=== PATIENT | female | born 1985 | race African-American/Black ===

== ENCOUNTER 2019-03-17 14:29 | Emergency (ER) | payer BC ==
[~2019-03-17] VITALS: Ht 172.7 cm; Wt 72.6 kg
[2019-03-17] MEDS ORDERED: WELLBUTRIN SR150 MG PO (14:47)
[2019-03-17] MEDS ORDERED: ATIVAN1 M1 PO (14:47)
[2019-03-17] MEDS ORDERED: ADDERALL 20 MG20 MG PO (14:48)
[2019-03-17 15:09] LABS: INFLUENZA A ANTIGEN Negative (Negative); INFLUENZA B ANTIGEN Negative (Negative)
[2019-03-17] MEDS ORDERED: ZOFRAN ODT4 MG SUBLING (15:26)
[2019-03-17 15:34] VITALS: BP 128/93
== END 2019-03-17 15:34 | disposition home or self-care (01) ==
LOC: M.ERS 14:29
PROVIDERS: Family Medicine
DX: B34.9 Viral infection, unspecified (principal); Z90.49 Acquired absence of other specified parts of digestive tract

== ENCOUNTER → 2019-05-30 | Outpatient (CLI) | payer BC ==
[~2019-05-30] MED LIST: ADDERALL 20 MG20 MG PO; ATIVAN1 M1 PO; WELLBUTRIN SR150 MG PO; ZOFRAN ODT4 MG SUBLING
== END ==
LOC: M.ULTRA 10:30
DX: K76.0 Fatty (change of) liver, not elsewhere classified (principal); R16.0 Hepatomegaly, not elsewhere classified

== ENCOUNTER 2019-06-21 14:31 | Inpatient (IN) | payer BC ==
[~2019-06-21] VITALS: Ht 175.3 cm; Wt 93.0 kg
--- NOTE | ~2019-06-21 | CON ---
[address] [address] CONSULTATION Name: PATRIZIA SHELDON Room: [address] IN .R.#: [id number] Admission: 06/21/19 Attend Phys: Zhang Carroll MD Discharge: Date of : 89 Report #: [id number] THIS REPORT FOR: //name// cc: CRISTINE Renae family physician/PCP CRISTINE Renae family physician/PCP ~ THIS REPORT FOR: //name// CC: Zhang COLUNGA physician/PCP DATE OF SERVICE: 06/22/2019 HISTORY OF PRESENT ILLNESS: A 33-year-old female with past medical history significant for anxiety, depression, ADHD, who is presenting for evaluation of intractable abdominal pain. The patient reports the pain began 2 days back, located in the epigastric region and radiates to the back associated with nausea, vomiting. The patient reports the pain is worse with eating and is relieved by pain medication. The patient denies similar episodes in the past. Denies episodes of jaundice, hematemesis, hematochezia or other alarm symptoms. PAST MEDICAL HISTORY: Anxiety, depression and ADHD. PAST SURGICAL HISTORY: Appendectomy in 2019. SOCIAL HISTORY: The patient admits to binge drinking, can take about 3-4 glasses of wine a few times a week. Denies smoking or recreational drug use. FAMILY HISTORY: No family history of pancreatic malignancy, colon or gastric cancers. REVIEW OF SYSTEMS: A comprehensive 10-point review of systems is negative except for what was mentioned in the HPI. PHYSICAL EXAMINATION: VITAL SIGNS: Temperature 36.6, pulse rate 81, blood pressure 133/97, respiratory rate 14. GENERAL: The patient is alert, awake, oriented x 3. HEENT: Pupils are equal, round, reactive to light and accommodation. Mucous membranes are moist. There is no congestion. LUNGS: Clear to auscultation bilaterally. CARDIOVASCULAR: Rate and rhythm regular, S1, S2 present. ABDOMEN: Soft. There is no distention, guarding or rigidity. EXTREMITIES: Warm, well perfused. There is no edema. SKIN: Warm and dry. LABORATORY DATA: Hemoglobin 12.1, hematocrit 36.1, platelet count 269, [place] [address] CONSULTATION Name: PATRIZIA SHELDONCIA Room: [address] IN [facility]#: [id number] Admission: 06/21/19 Attend Phys: Zhang Carroll MD Discharge: Date of : 89 Report #: [id number] count 6.3. Sodium 136, potassium 4.1, chloride 102, bicarbonate 24, BUN 6, creatinine 0.7, total bilirubin 0.2, AST 96, ALT 129, alkaline phosphatase 54, lipase 6800. IMAGING: Abdomen and pelvis CT demonstrates moderate retroperitoneal fluid surrounding the pancreatic head and body, likely indicating pancreatitis. ASSESSMENT AND PLAN: Pleasant 33-year-old female with likely alcoholic pancreatitis, presents with a first episode. Alcohol cessation advised to continue IV fluids and pain medications as needed. Advance diet as tolerated. Since this is the patient's first episode of pancreatitis, no further evaluation is needed. Thank you for this consultation. By: [id number] Davey MD /nt
[2019-06-21 14:41] VITALS: BP 130/74
[2019-06-21] MEDS ORDERED: AUGMENTIN 875-1 EACH PO (14:45)
[2019-06-21 15:09] LABS: ABSOLUTE BASOPHILS 0.1 thou/uL (0.0-0.2); ABSOLUTE LYMPHOCYTES 1.3 thou/uL (0.8-5.3); ABSOLUTE MONOCYTES 0.4 thou/uL (0.0-1.2); ABSOLUTE NEUTROPHILS 3.5 thou/uL (1.6-8.1); EOSINOPHILS 0.7 %; HEMATOCRIT 39.6 % (37.0-47.0); HEMOGLOBIN 13.1 gm/dL (12.0-15.0); LYMPHOCYTES 24.1 %; MCH 29.5 pg (26.0-34.0); MCHC 32.9 g/dL (28.0-37.0); MCV 89.6 fL (80.0-100.0); MONOCYTES 7.2 %; MPV 7.7 fl. (7.2-11.1); NUCLEATED RBCS 0 /100WBC; PLATELET COUNT* 309 thou/uL (150-400); RBC 4.42 mil/uL (4.20-5.00); RDW-CV 14.6 % (10.5-14.5); WBC 5.2 thou/uL (4.0-11.0)
[2019-06-21 15:14] LABS: CALCIUM 8.4 mg/dL (8.5-10.1); CREATININE 0.9 mg/dL (0.6-1.3); POTASSIUM 3.8 mmol/L (3.5-5.1)
[2019-06-21 15:15] LABS: URINE CLARITY CLOUDY; URINE COLOR ORANGE
[2019-06-21 15:18] LABS: ALBUMIN 3.8 g/dL (3.4-5.0); TOTAL BILIRUBIN 0.5 mg/dL (<0.1-1.0); TOTAL PROTEIN 7.4 g/dL (6.4-8.2)
[2019-06-21 15:20] LABS: SQUAMOUS 0-3 Few /LPF (0-3)
[2019-06-21 15:21] LABS: BACTERIA-REFLEX >30 Many /HPF (None Seen); CASTS None Seen /LPF (None Seen); CRYSTALS None Seen /LPF (None Seen); URINE RBC >20 Many /HPF (0-2); URINE WBC-REFLEX >25 Many /HPF (0-5)
[2019-06-21 17:44] VITALS: BP 141/87
[2019-06-21 18:00] VITALS: BP 134/79
--- NOTE | 2019-06-21 19:52 | NUR ---
RECEIVED REPORT FROM ER. PT ARRIVED TO TELE FLOOR AROUND 1800. PT SETTELED IN ROOM ,ORIENTED TO ROOM BED AND CALL LIGHT. VITALS CAHRTED. PT REPORTED ABDOMINAL PAIN AND RECEIVED IV PAIN MEDICATION WITH LIMITED RELIEF. SEPSIS SCREEN COMPLETED AND SHOWED POSITIVE RESULT - DR WEAVER NOTIFIED AND ORDERS PUT IN THE COMPUTER BY HIM. PT NPO AT THIS TIME FOR LIMITED US ABDOMEN, STAT. PT CURRENTLY RESTING IN BED BUT RESTLESS. CALL LIGHT IS WITHIN REACH. LOW FALL RISK PRECAUTIONS IN PLACE. HOURLY ROUNDING PERFORMED. PT HANDED OFF TO AMBROCIO PURI.
[2019-06-21 21:00] VITALS: BP 127/79
[2019-06-22 00:02] VITALS: BP 132/100
[2019-06-22 04:34] LABS: ABSOLUTE LYMPHOCYTES 0.7 thou/uL (0.8-5.3); ABSOLUTE MONOCYTES 0.5 thou/uL (0.0-1.2); ABSOLUTE NEUTROPHILS 5.1 thou/uL (1.6-8.1); BASOPHILS 0.3 %; EOSINOPHILS 0.1 %; HEMATOCRIT 36.1 % (37.0-47.0); HEMOGLOBIN 12.1 gm/dL (12.0-15.0); LYMPHOCYTES 11.2 %; MCH 30.3 pg (26.0-34.0); MCHC 33.4 g/dL (28.0-37.0); MCV 90.5 fL (80.0-100.0); MONOCYTES 7.8 %; MPV 8.1 fl. (7.2-11.1); NUCLEATED RBCS 0 /100WBC; PLATELET COUNT* 269 thou/uL (150-400); POLYS 80.6 %; RBC 3.99 mil/uL (4.20-5.00); RDW-CV 14.5 % (10.5-14.5); WBC 6.3 thou/uL (4.0-11.0)
[2019-06-22 04:57] LABS: CALCIUM 7.7 mg/dL (8.5-10.1); CREATININE 0.7 mg/dL (0.6-1.3); POTASSIUM 4.1 mmol/L (3.5-5.1)
--- NOTE | 2019-06-22 05:52 | NUR ---
ASSESSMENTS COMPLETED CHARTED, MEDICATIONS ADMINISTERED PER MAR. HOURLY ROUNDING FOR SAFETY. CALL LIGHT WITHIN REACH. CONT PLAN OF CARE.
[2019-06-22 08:00] VITALS: BP 133/97
[2019-06-22 09:55] LABS: ALBUMIN 3.2 g/dL (3.4-5.0); DIRECT BILIRUBIN 0.2 mg/dL (<0.1-0.3); TOTAL BILIRUBIN 0.7 mg/dL (<0.1-1.0); TOTAL PROTEIN 6.4 g/dL (6.4-8.2)
--- NOTE | 2019-06-22 12:57 | EKG ---
[place] [address] ELECTROCARDIOGRAM REPORT Name: PATRIZIA SHELDON Room: [address] ADM IN M.R.#: [id number] Admission: 06/21/19 Attend Phys: Zhang Carroll, Discharge: Date of : 89 Date of Service: 06/21/19 1500 Report #: [id number] THIS REPORT FOR: //name// [facility] ED Test Date: 2019-06-21 Test Time: 15:00:34 Pat Name: PATRIZIA SHELDON Department: Room: [facility] Gender: F Adult School Teacher: : 1985 Requested By: Dior Swann Order Number: [id number] MD: Marko Carcamo Measurements Intervals [place] Rate: 81 P: 55 RI: 163 QRS: 54 QRSD: 94 T: 47 QT: 408 QTc: 474 Interpretive Statements Sinus rhythm Baseline wander in lead(s) I,II,aVR,aVL No previous ECG available for comparison Electronically Signed On 06-22-2019 12:56:25 CDT by Marko Carcamo [email or web address] <ELECTRONICALLY SIGNED> By: Marko Carcamo MD, FACC 06/22/19 1256 1500 1500 Marko Carcamo MD, FAC /EPI
[2019-06-22 16:36] VITALS: BP 133/97
--- NOTE | 2019-06-22 18:38 | NUR ---
CONNIE RESTING IN BED. PAIN MANAGEMENT WITH IV FENTAYL [id number]. IV FLUIDS. HOURLY ROUNDINGCOMPLETD FOR PATIENT SAFETY.
[2019-06-22 20:30] VITALS: BP 135/90
[2019-06-23] VITALS: BP 133/92; BP 144/80
--- NOTE | 2019-06-23 03:47 | NUR ---
ASSUMED CARE FROM DAY SHIFT PT UP WASHING HAIR C/O PAIN REQUESTING FOOD , ICE CHIPS AND SIPS OF WATER RECOMMENED DUE TO HER NPO STATUS. PAIN MEDICATION REQUESTED EVERY TWO HOURS. PT REQUESTING FOOD .DENIES NAUSEA AT THIS TIME. WILL CONTINUE WITH CURRENT PLAN OF CARE.
[2019-06-23 05:11] LABS: ABSOLUTE MONOCYTES 0.8 thou/uL (0.0-1.2); ABSOLUTE NEUTROPHILS 7.4 thou/uL (1.6-8.1); BASOPHILS 0.2 %; EOSINOPHILS 0.4 %; HEMATOCRIT 37.2 % (37.0-47.0); HEMOGLOBIN 12.3 gm/dL (12.0-15.0); LYMPHOCYTES 10.3 %; MCH 29.8 pg (26.0-34.0); MCV 90.2 fL (80.0-100.0); MONOCYTES 8.4 %; MPV 8.9 fl. (7.2-11.1); NUCLEATED RBCS 0 /100WBC; PLATELET COUNT* 226 thou/uL (150-400); POLYS 80.7 %; RBC 4.12 mil/uL (4.20-5.00); RDW-CV 14.6 % (10.5-14.5); WBC 9.2 thou/uL (4.0-11.0)
[2019-06-23 05:26] LABS: ALBUMIN 2.6 g/dL (3.4-5.0); CALCIUM 7.3 mg/dL (8.5-10.1); CREATININE 0.7 mg/dL (0.6-1.3); POTASSIUM 3.5 mmol/L (3.5-5.1); TOTAL BILIRUBIN 0.5 mg/dL (<0.1-1.0); TOTAL PROTEIN 5.5 g/dL (6.4-8.2)
[2019-06-23 07:40] VITALS: BP 130/82
[2019-06-23 10:36] LABS: CHOLESTEROL 102 mg/dL (<200); HDL CHOLESTEROL 29 mg/dL (>40); LDL CHOLESTEROL 64 mg/dL (<100); TC:HDL 3.5 Ratio (Not establshd); TRIGLYCERIDE 48 mg/dL (<150); VLDL 10 mg/dL (<40)
[2019-06-23 10:50] LABS: SERUM ASSESSMENT Clear
[2019-06-23 10:51] LABS: LIPASE 7655 U/L (73-393)
[2019-06-23 16:25] VITALS: BP 132/94
--- NOTE | 2019-06-23 19:27 | NUR ---
PATIENT TOLERATED CLEAR LIQUIDS THIS SHIFT. PATIENT CONCERNED ABOUT LOW GRADE TEMP OF 99.2 THIS AM, AFEBRILE THIS SHIFT. PATIENT CALLED OUT STATING SOA THIS AFTERNOON, 02 SAT 97% SAT RA. NO LABORED BREATHING NOTED. DR. WEAVER WAS NOTIFIED AND CXR ORDERED, RESULTS PAGED OUT TO DR. WEAVER AND NO NEW ORDERS RECEIVED. IVF RATE DECREASED TO 150MLS/HR PER ORDERS, REMAINS ON HS ABX. DR. WEAVER WAS NOTIFIED OF LIPASE THIS AM. IS GIVEN AND INSTRUCTED ON BY RT PER ORDERS. PATIENT UP AND SHOWERED THIS EVENING. PATIENT CALLED OUT FOR NURSE THIS EVENING AND STATED THAT HER FAMILY FELT SHE NEEDED TO BE TESTED FOR COVID. THIS NURSE WENT OVER CXR RESULTS AND IMPORTANCE OF IS AND ACTIVITY. DR. CRUZ NOTIFIED OF PATIENT CONCERN AND NO NEW ORDERS RECEIVED AT THIS TIME. PATIENT REQUIRING PRN FENTANYL FOR ABD PAIN Q 4 HOURS.
[2019-06-23 21:00] VITALS: BP 124/87
[2019-06-24 04:00] VITALS: BP 116/55
[2019-06-24 05:23] LABS: ABSOLUTE EOSINOPHILS 0.1 thou/uL (0.0-0.7); ABSOLUTE LYMPHOCYTES 1.5 thou/uL (0.8-5.3); ABSOLUTE MONOCYTES 0.8 thou/uL (0.0-1.2); ABSOLUTE NEUTROPHILS 6.2 thou/uL (1.6-8.1); BASOPHILS 0.4 %; EOSINOPHILS 0.9 %; HEMATOCRIT 34.2 % (37.0-47.0); HEMOGLOBIN 11.5 gm/dL (12.0-15.0); LYMPHOCYTES 17.3 %; MCH 30.2 pg (26.0-34.0); MCHC 33.6 g/dL (28.0-37.0); MCV 89.9 fL (80.0-100.0); MONOCYTES 8.9 %; MPV 8.8 fl. (7.2-11.1); NUCLEATED RBCS 0 /100WBC; PLATELET COUNT* 183 thou/uL (150-400); POLYS 72.5 %; RBC 3.81 mil/uL (4.20-5.00); RDW-CV 14.3 % (10.5-14.5); WBC 8.6 thou/uL (4.0-11.0)
[2019-06-24 05:40] LABS: ALBUMIN 2.4 g/dL (3.4-5.0); CALCIUM 7.6 mg/dL (8.5-10.1); CREATININE 0.6 mg/dL (0.6-1.3); POTASSIUM 3.2 mmol/L (3.5-5.1); TOTAL BILIRUBIN 0.6 mg/dL (<0.1-1.0); TOTAL PROTEIN 5.4 g/dL (6.4-8.2)
--- NOTE | 2019-06-24 06:19 | NUR ---
GOT FENTANYL D/C TO [facility] FOR PAIN. LAST DOSE 0530 SHE REPORTED PAIN BETTER BUT CONCERNED ABOUT WORKING WITH THERAPY. SHE ALSO REPORTS SHE WANTS TO GO HOME. SHE IS UP AD CHASTITY, A&O X4. TOLERATING CLEAR LIQUID DIET. PAIN NOW AT 5/10. LIPASE LEVEL IMPROVING FROM 7655 TO 3447 TODAY. RECEIVED SCHEDULED MEDS AND FLUIDS. WILL CONTINUE TO MONITOR.
[2019-06-24 09:24] VITALS: BP 117/85
[2019-06-24 11:51] VITALS: BP 117/85
[2019-06-24] MEDS ORDERED: FOLIC ACID1 MG PO (11:59)
[2019-06-24] MEDS ORDERED: SUPER THERAVIT1 EACH PO (12:01)
[2019-06-24] MEDS ORDERED: PROTONIX40 M2 PO (12:02)
[2019-06-24] MEDS ORDERED: OXYCODONE HCL 55 MG PO (12:03)
[2019-06-24] MEDS ORDERED: VITAMIN B-1100 M2 PO (12:03)
--- NOTE | 2019-06-24 13:56 | NUR ---
PT DISCHARGED TO HOME AT 1350 WITH NURSING STAFF AND . IV OUT. PT STABLE. PAIN CONTROLLED. TOLERATED DIET. PERSONAL BELONGINGS AND PAPER RX SENT WITH PT.
== END 2019-06-24 13:57 | disposition home or self-care (01) | DRG 871 ==
LOC: M.ERS 14:31 → M.TBA-ER 16:25 → M.ERS 16:25 → M.2W 16:36 → M.TBA-ER 16:36 → M.2W 18:12
PROVIDERS: Nurse Practitioner Family; ADMIT Internal Medicine
DX: A41.9 Sepsis, unspecified organism (principal); K85.20 Alcohol induced acute pancreatitis without necrosis or infection; N30.90 Cystitis, unspecified without hematuria; F32.9 Major depressive disorder, single episode, unspecified; F41.9 Anxiety disorder, unspecified; F90.9 Attention-deficit hyperactivity disorder, unspecified type